=== PATIENT | female | born 1970 | race Caucasian/White ===

== ENCOUNTER 2022-05-23 06:05 | Inpatient (IN) | payer BC ==
[~2022-05-23] VITALS: Ht 165.1 cm; Wt 112.2 kg
[~2022-05-23 06:05] MED LIST: BUPR150T18 PO; FENO1CAP PO; HYDR-4902 PO; HYDR25TA5 PO; LISI30TA4 PO; SEMA2INJ SC; SITA50TA28 PO
[2022-05-23] MEDS ORDERED: MINERAL OIL TOPICAL 10ml TOP ONE (06:45)
[2022-05-23] MEDS ORDERED: BUPIVACAINE W/ EPINEPH 0.5% INJ 50ML MDV IJ ONE (06:45)
[2022-05-23] MEDS ORDERED: THROMBIN (BOVINE) 5000 UNIT SOL VIAL ONE (06:45)
[2022-05-23] MEDS ORDERED: VANCOMYCIN HCL 1000 MG VL ONE (06:49)
[2022-05-23] MEDS ORDERED: ceFAZolin 1GM/50ML 100 ML IV ONE (07:28)
[2022-05-23] MEDS ORDERED: MIDAZOLAM HCL 2MG/2ML 2ml VIAL (1mg/ml) ONE (07:32)
[2022-05-23] MEDS ORDERED: fentaNYL CITRATE 100 MCG/2 ML VL ONE (07:32)
[2022-05-23] MEDS ORDERED: SUCCINYLCHOLINE CHLORIDE 20 MG/ML 10ML VIAL IV ONE (07:37)
[2022-05-23] MEDS ORDERED: ETOMIDATE (2MG/ML) 20ML VIAL IV ONE (07:44)
[2022-05-23] MEDS ORDERED: SUGAMMADEX 200mg/2ml Vial (100MG/ML) IV ONE (07:45)
[2022-05-23] MEDS ORDERED: LABETALOL HCL 5 MG/ML 4ML SYRINGE IV PRN (08:30)
[2022-05-23] MEDS ORDERED: ACCU-CHEK COMFORT CURVE STRIP VI ONE (08:30)
[2022-05-23] MEDS ORDERED: ePHEDrine SULFATE 50 MG/ML AMP IV PRN (08:30)
[2022-05-23] MEDS ORDERED: HYDROmorphone HCL 2 MG/ML VL/or syr IV PRN (08:30)
[2022-05-23] MEDS ORDERED: MORPHINE SULFATE 4 MG/ML SYR/VIAL IV PRN (08:30)
[2022-05-23] MEDS ORDERED: ONDANSETRON HCL 4 MG/2 ML VIAL IV PRN (08:30)
[2022-05-23] MEDS ORDERED: MIDAZOLAM HCL 2MG/2ML 2ml VIAL (1mg/ml) IV PRN (08:30)
[2022-05-23] MEDS ORDERED: TRANEXAMIC ACID 20 ML ONE (08:33)
[2022-05-23] MEDS ORDERED: PROPOFOL 10 MG/ML 20 ML IV ONE (12:22)
[2022-05-23] MEDS ORDERED: ONDANSETRON HCL 4 MG/2 ML VIAL ONE (13:21)
[2022-05-23] MEDS ORDERED: MORPHINE SULFATE INJ 2 MG/ml SYRG IV PRN (14:00)
[2022-05-23] MEDS ORDERED: NITROGLYCERIN 0.4 MG SL TAB SL PRN (14:00)
[2022-05-23] MEDS: HYDROmorphone HCL 2 MG/ML VL/or syr ONE ×2 (14:57→14:58)
[2022-05-23] MEDS: HYDROmorphone HCL 2 MG/ML VL/or syr IV PRN (18:52)
[2022-05-23] MEDS: ONDANSETRON HCL 4 MG/2 ML VIAL IV PRN (19:30)
[2022-05-23 19:51] VITALS: BP_SYST 110; BP_DIAS 80; BP_DIAS 86
[2022-05-23] MEDS: LACTATED RINGER'S 1,000 ML IV SCH (19:58)
[2022-05-23] MEDS: ceFAZolin 1GM/50ML 50 ML IV SCH ×2 (19:58→22:46)
[2022-05-23 20:00] VITALS: BP 133/79
[2022-05-23] MEDS ORDERED: DEXTROSE (50%) 50ML SYRG IV ONE (20:00)
[2022-05-23 21:59] VITALS: BP 133/79
[2022-05-23] MEDS: SENNA 8.6 MG TAB PO SCH (22:46)
[2022-05-23] MEDS: DOCUSATE SOD 100 MG CAP PO SCH (22:46)
[2022-05-23] MEDS: ACCU-CHEK COMFORT CURVE STRIP VI SCH (22:47)
[2022-05-23] MEDS: InsuLIN REG 1unit/0.01ml Soln (100units/ml) SC SCH (23:03)
[2022-05-24 04:50] VITALS: BP 120/56
[2022-05-24] MEDS: ceFAZolin 1GM/50ML 50 ML IV SCH (06:24)
[2022-05-24] MEDS: ACCU-CHEK COMFORT CURVE STRIP VI SCH ×4 (06:28→22:49)
[2022-05-24] MEDS: InsuLIN REG 1unit/0.01ml Soln (100units/ml) SC SCH ×4 (06:31→22:56)
[2022-05-24 06:55] LABS: Basophils # (auto) 0 10 ^3/uL (0-0.2); Basophils % (auto) 0.3 % (0.0-2.0); Eosinophils # (auto) 0 10 ^3/uL (0-0.8); Eosinophils % (auto) 0.2 % (0.0-7.0); Hematocrit 31.4 % (36.0-46.0); Hemoglobin 10.6 g/dL (12.2-16.2); Lymphocytes # (auto) 1.7 10 ^3/uL (0.4-5.4); Mean Corpuscular Hemoglobin 30.1 pg (28.0-32.0); Mean Corpuscular Hgb Conc. 33.7 g/dL (32.0-36.0); Mean Corpuscular Volume 89.2 fL (80.0-100.0); Monocytes # (auto) 1.2 10 ^3/uL (0-1.3); Neutrophils # (auto) 14.2 10 ^3/uL (1.6-8.6); Neutrophils % (auto) 82.5 % (37.0-80.0); Nucleated Red Blood Cells % 0.1 %; Red Blood Cells 3.53 10^6/uL (4.0-5.20); Red Cell Distribution Width 13.1 % (11.8-14.3); White Blood Cell 17.2 10^3/uL (4.4-10.8)
[2022-05-24 06:59] LABS: Potassium 3.8 mmol/L (3.5-5.1)
[2022-05-24 07:06] LABS: BUN/Creatinine Ratio 15.9; Calcium 8.4 mg/dL (8.5-10.1)
[2022-05-24 08:00] VITALS: BP 133/79
[2022-05-24 09:00] VITALS: BP 131/67
[2022-05-24] MEDS: LACTATED RINGER'S 1,000 ML IV SCH ×3 (10:00→20:00)
[2022-05-24] MEDS: POLYETHYLENE GLYCOL 17 GM PWDR PO SCH (10:56)
[2022-05-24] MEDS: SENNA 8.6 MG TAB PO SCH ×2 (10:56→21:29)
[2022-05-24] MEDS: DOCUSATE SOD 100 MG CAP PO SCH ×2 (10:57→21:29)
[2022-05-24] MEDS: HYDROmorphone HCL 2 MG/ML VL/or syr IV PRN ×3 (11:02→22:50)
[2022-05-24 13:00] VITALS: BP 137/69
[2022-05-24] MEDS: oxyCODONE HCL 5MG TAB PO PRN ×2 (14:07→18:46)
[2022-05-24] MEDS ORDERED: KETAMINE 50mg/ML 10ml Vial (500mg/10ml) IV ONE (15:40)
[2022-05-24] MEDS: HEPARIN SODIUM (PORCINE) 5000 UNITS/ML 1ML VIAL SC SCH ×2 (16:51→21:34)
[2022-05-24 17:00] VITALS: BP 139/76
[2022-05-24 22:57] VITALS: BP 146/65
[2022-05-25 05:33] VITALS: BP 155/80
[2022-05-25] MEDS: LACTATED RINGER'S 1,000 ML IV SCH ×2 (06:00→16:00)
[2022-05-25 06:28] LABS: Basophils # (auto) 0.1 10 ^3/uL (0-0.2); Basophils % (auto) 0.8 % (0.0-2.0); Eosinophils # (auto) 0 10 ^3/uL (0-0.8); Eosinophils % (auto) 0.3 % (0.0-7.0); Hematocrit 31.6 % (36.0-46.0); Hemoglobin 10.7 g/dL (12.2-16.2); Lymphocytes # (auto) 1.7 10 ^3/uL (0.4-5.4); Lymphocytes % (auto) 13.2 % (10.0-50.0); Mean Corpuscular Hemoglobin 30.2 pg (28.0-32.0); Mean Corpuscular Volume 88.8 fL (80.0-100.0); Monocytes # (auto) 1.4 10 ^3/uL (0-1.3); Monocytes % (auto) 11.5 % (0.0-12.0); Neutrophils # (auto) 9.3 10 ^3/uL (1.6-8.6); Neutrophils % (auto) 74.2 % (37.0-80.0); Nucleated Red Blood Cells % 0.1 %; Red Blood Cells 3.56 10^6/uL (4.0-5.20); Red Cell Distribution Width 13.5 % (11.8-14.3); White Blood Cell 12.5 10^3/uL (4.4-10.8)
[2022-05-25 06:54] LABS: BUN/Creatinine Ratio 21.3; Calcium 8.1 mg/dL (8.5-10.1); Potassium 3.4 mmol/L (3.5-5.1)
[2022-05-25] MEDS: HEPARIN SODIUM (PORCINE) 5000 UNITS/ML 1ML VIAL SC SCH ×3 (07:17→23:43)
[2022-05-25] MEDS: ACCU-CHEK COMFORT CURVE STRIP VI SCH ×4 (07:18→23:24)
[2022-05-25] MEDS: InsuLIN REG 1unit/0.01ml Soln (100units/ml) SC SCH ×4 (07:19→23:25)
[2022-05-25] MEDS: oxyCODONE HCL 5MG TAB PO PRN ×2 (07:25→11:31)
[2022-05-25] MEDS ORDERED: POTASSIUM CHL 20 Meq TABLET PO ONE (09:45)
[2022-05-25 10:11] VITALS: BP 157/73
[2022-05-25] MEDS: buPROPion HCL 75 MG TAB PO SCH ×2 (11:30→23:13)
[2022-05-25] MEDS: HCTZ 25 MG TAB PO SCH (11:30)
[2022-05-25] MEDS: DOCUSATE SOD 100 MG CAP PO SCH ×2 (11:31→23:13)
[2022-05-25] MEDS: LISINOPRIL 20 MG TAB PO SCH (11:31)
[2022-05-25] MEDS: SENNA 8.6 MG TAB PO SCH ×2 (11:32→23:13)
[2022-05-25] MEDS: HYDROmorphone HCL 2 MG/ML VL/or syr IV PRN ×2 (13:00→18:00)
[2022-05-25 13:12] VITALS: BP 138/75
[2022-05-25] MEDS: ACETAMINOPHEN 325 MG TAB PO PRN ×3 (13:38→23:13)
[2022-05-25 15:50] LABS: Urine Bacteria NONE SEEN /hpf (None Seen); Urine Blood Negative /uL (Negative); Urine Specific Gravity 1.009 (1.001-1.035); Urine WBC <1 /hpf (0 - 5)
[2022-05-25] MEDS: POLYETHYLENE GLYCOL 17 GM PWDR PO SCH (16:24)
[2022-05-25 16:51] VITALS: BP 134/64
[2022-05-25 22:00] VITALS: BP_SYST 124; BP_SYST 154; BP_DIAS 54; BP_DIAS 99
[2022-05-26] MEDS: HYDROmorphone HCL 2 MG/ML VL/or syr IV PRN ×3 (01:35→22:30)
[2022-05-26] MEDS: LACTATED RINGER'S 1,000 ML IV SCH ×3 (02:00→22:00)
[2022-05-26 04:29] LABS: Basophils # (auto) 0 10 ^3/uL (0-0.2); Basophils % (auto) 0.3 % (0.0-2.0); Eosinophils # (auto) 0 10 ^3/uL (0-0.8); Eosinophils % (auto) 0.1 % (0.0-7.0); Hematocrit 31.2 % (36.0-46.0); Hemoglobin 10.5 g/dL (12.2-16.2); Lymphocytes # (auto) 1.5 10 ^3/uL (0.4-5.4); Lymphocytes % (auto) 8.2 % (10.0-50.0); Mean Corpuscular Hemoglobin 29.9 pg (28.0-32.0); Mean Corpuscular Hgb Conc. 33.5 g/dL (32.0-36.0); Mean Corpuscular Volume 89.2 fL (80.0-100.0); Monocytes # (auto) 0.7 10 ^3/uL (0-1.3); Monocytes % (auto) 4.2 % (0.0-12.0); Neutrophils # (auto) 15.5 10 ^3/uL (1.6-8.6); Neutrophils % (auto) 87.2 % (37.0-80.0); Red Cell Distribution Width 13.1 % (11.8-14.3); White Blood Cell 17.7 10^3/uL (4.4-10.8)
[2022-05-26 04:48] LABS: BUN/Creatinine Ratio 18.4; Calcium 7.9 mg/dL (8.5-10.1); Potassium 3.4 mmol/L (3.5-5.1)
[2022-05-26 05:00] VITALS: BP 106/60
[2022-05-26] MEDS: buPROPion HCL 75 MG TAB PO SCH ×2 (07:12→22:06)
[2022-05-26] MEDS: HEPARIN SODIUM (PORCINE) 5000 UNITS/ML 1ML VIAL SC SCH ×3 (07:15→22:07)
[2022-05-26] MEDS: ACCU-CHEK COMFORT CURVE STRIP VI SCH ×4 (07:17→22:06)
[2022-05-26] MEDS: InsuLIN REG 1unit/0.01ml Soln (100units/ml) SC SCH ×4 (07:18→22:13)
[2022-05-26] MEDS: oxyCODONE HCL 5MG TAB PO PRN ×2 (07:19→16:34)
[2022-05-26 09:00] VITALS: BP 122/67
[2022-05-26] MEDS: POLYETHYLENE GLYCOL 17 GM PWDR PO SCH (10:00)
[2022-05-26] MEDS: LISINOPRIL 20 MG TAB PO SCH (10:21)
[2022-05-26] MEDS: DOCUSATE SOD 100 MG CAP PO SCH ×2 (10:22→22:06)
[2022-05-26] MEDS: OXYCODONE W/ ACETAMINOPHEN 5/325MG TABLET PO PRN ×2 (10:22→18:49)
[2022-05-26] MEDS: SENNA 8.6 MG TAB PO SCH ×2 (10:23→22:05)
[2022-05-26] MEDS: HCTZ 25 MG TAB PO SCH (10:23)
[2022-05-26] MEDS ORDERED: BISACODYL 5 MG EC TAB PO ONE (10:30)
[2022-05-26 12:25] VITALS: BP 103/53
[2022-05-26 16:00] VITALS: BP 98/48
[2022-05-26 22:00] VITALS: BP 105/56
[2022-05-27 05:00] VITALS: BP 132/70
[2022-05-27] MEDS: ONDANSETRON HCL 4 MG/2 ML VIAL IV PRN (05:34)
[2022-05-27] MEDS: HEPARIN SODIUM (PORCINE) 5000 UNITS/ML 1ML VIAL SC SCH ×2 (05:35→14:00)
[2022-05-27] MEDS: OXYCODONE W/ ACETAMINOPHEN 5/325MG TABLET PO PRN (05:46)
[2022-05-27] MEDS: ACCU-CHEK COMFORT CURVE STRIP VI SCH ×2 (05:58→12:11)
[2022-05-27 06:04] LABS: Basophils # (auto) 0.1 10 ^3/uL (0-0.2); Basophils % (auto) 0.8 % (0.0-2.0); Eosinophils # (auto) 0.2 10 ^3/uL (0-0.8); Eosinophils % (auto) 1.7 % (0.0-7.0); Hematocrit 30.5 % (36.0-46.0); Hemoglobin 10.2 g/dL (12.2-16.2); Lymphocytes # (auto) 2.1 10 ^3/uL (0.4-5.4); Lymphocytes % (auto) 18.2 % (10.0-50.0); Mean Corpuscular Hemoglobin 29.5 pg (28.0-32.0); Mean Corpuscular Hgb Conc. 33.4 g/dL (32.0-36.0); Mean Corpuscular Volume 88.4 fL (80.0-100.0); Monocytes # (auto) 1.5 10 ^3/uL (0-1.3); Monocytes % (auto) 13.5 % (0.0-12.0); Neutrophils # (auto) 7.5 10 ^3/uL (1.6-8.6); Neutrophils % (auto) 65.8 % (37.0-80.0); Nucleated Red Blood Cells % 0.1 %; Red Blood Cells 3.45 10^6/uL (4.0-5.20); Red Cell Distribution Width 13.5 % (11.8-14.3); White Blood Cell 11.5 10^3/uL (4.4-10.8)
[2022-05-27 06:08] LABS: BUN/Creatinine Ratio 21.4; Potassium 3.7 mmol/L (3.5-5.1)
[2022-05-27] MEDS: InsuLIN REG 1unit/0.01ml Soln (100units/ml) SC SCH ×2 (06:08→12:13)
[2022-05-27] MEDS: buPROPion HCL 75 MG TAB PO SCH (06:09)
[2022-05-27] MEDS: LACTATED RINGER'S 1,000 ML IV SCH (08:00)
[2022-05-27 09:00] VITALS: BP 136/65
[2022-05-27] MEDS ORDERED: cefTRIAXone 1GM/50ML D5W 50 ML IV SCH (09:00)
[2022-05-27 09:56] VITALS: BP 132/70
[2022-05-27] MEDS: DOCUSATE SOD 100 MG CAP PO SCH (10:48)
[2022-05-27] MEDS: HCTZ 25 MG TAB PO SCH (10:49)
[2022-05-27] MEDS: POLYETHYLENE GLYCOL 17 GM PWDR PO SCH (10:49)
[2022-05-27] MEDS: LISINOPRIL 20 MG TAB PO SCH (10:50)
[2022-05-27] MEDS: SENNA 8.6 MG TAB PO SCH (10:50)
[2022-05-27] MEDS: oxyCODONE HCL 5MG TAB PO PRN (11:15)
[2022-05-27] MEDS ORDERED: ROCURONIUM 10MG/ML 10ML VIAL IV ONE (14:47)
[2022-05-27] MEDS ORDERED: DexAMETHasone SOD PHOS 10MG/1ML VIAL INJ IV ONE (14:47)
== END 2022-05-27 14:48 | disposition home or self-care (01) | DRG 454 ==
LOC: SUR 06:05 → OVERFLOW 14:12 → EAST 16:00 → TELE-EAST 21:25
PROVIDERS: ADMIT Orthopaedic Surgery; ATTEND Internal Medicine
PROC: 0SG0071 Fusion of Lumbar Vertebral Joint with Autologous Tissue Substitute, Posterior Approach, Posterior Column, Open Approach (ICD-10-PCS; 2022-05-23)
PROC: 0SG30AJ Fusion of Lumbosacral Joint with Interbody Fusion Device, Posterior Approach, Anterior Column, Open Approach (ICD-10-PCS; 2022-05-23)
PROC: 01NB0ZZ Release Lumbar Nerve, Open Approach (ICD-10-PCS; 2022-05-23)
PROC: 00NY0ZZ Release Lumbar Spinal Cord, Open Approach (ICD-10-PCS; 2022-05-23)
PROC: 0SB40ZZ Excision of Lumbosacral Disc, Open Approach (ICD-10-PCS; 2022-05-23)
PROC: 01NR0ZZ Release Sacral Nerve, Open Approach (ICD-10-PCS; 2022-05-23)
PROC: 4A11X4G Monitoring of Peripheral Nervous Electrical Activity, Intraoperative, External Approach (ICD-10-PCS; 2022-05-23)
PROC: 0SB20ZZ Excision of Lumbar Vertebral Disc, Open Approach (ICD-10-PCS; 2022-05-23)
PROC: 0SG3071 Fusion of Lumbosacral Joint with Autologous Tissue Substitute, Posterior Approach, Posterior Column, Open Approach (ICD-10-PCS; 2022-05-23)
PROC: 0SG00AJ Fusion of Lumbar Vertebral Joint with Interbody Fusion Device, Posterior Approach, Anterior Column, Open Approach (ICD-10-PCS; principal; 2022-05-23 07:43)
DX: M48.062 Spinal stenosis, lumbar region with neurogenic claudication (principal); Z68.41 Body mass index [BMI] 40.0-44.9, adult; E11.9 Type 2 diabetes mellitus without complications; E66.9 Obesity, unspecified; M54.16 Radiculopathy, lumbar region; E78.5 Hyperlipidemia, unspecified; F32.A Depression, unspecified; I10 Essential (primary) hypertension; Z20.822 Contact with and (suspected) exposure to COVID-19
CPT/HCPCS: 36415; 72100; 76000; 80048; 81001; 82962; 85025; 86850; 86900; 86901; 87040; 87077; 87086; 87186; 97163; G0378; J0330; J0690; J0696; J1100; J1815; J2250; J2405; J2704

== ENCOUNTER 2022-06-05 20:59 | Inpatient (IN) | payer BC ==
[~2022-06-05] VITALS: Ht 170.2 cm; Wt 99.6 kg
[2022-06-05] MEDS ORDERED: IOHEXOL 300 MG/ML 100ML BOTTLE IJ ONE (23:06)
[2022-06-05 23:14] LABS: Basophils # (auto) 0.1 10 ^3/uL (0-0.2); Basophils % (auto) 0.6 % (0.0-2.0); Eosinophils # (auto) 0.2 10 ^3/uL (0-0.8); Hemoglobin 10.6 g/dL (12.2-16.2); Lymphocytes # (auto) 1.8 10 ^3/uL (0.4-5.4)
[2022-06-05 23:17] LABS: Eosinophils % (auto) 0.8 % (0.0-7.0); Hematocrit 32.3 % (36.0-46.0); Lymphocytes % (auto) 8.7 % (10.0-50.0); Mean Corpuscular Hemoglobin 29.2 pg (28.0-32.0); Mean Corpuscular Hgb Conc. 32.9 g/dL (32.0-36.0); Mean Corpuscular Volume 88.8 fL (80.0-100.0); Monocytes % (auto) 4.9 % (0.0-12.0); Neutrophils # (auto) 18.1 10 ^3/uL (1.6-8.6); Red Blood Cells 3.64 10^6/uL (4.0-5.20); Red Cell Distribution Width 13.5 % (11.8-14.3); White Blood Cell 21.2 10^3/uL (4.4-10.8)
[2022-06-05 23:35] LABS: Albumin 2.7 g/dL (3.4-5.0); Calcium 9.9 mg/dL (8.5-10.1); Potassium 4.4 mmol/L (3.5-5.1)
[2022-06-05 23:37] LABS: BUN/Creatinine Ratio 33.9
[2022-06-05 23:40] LABS: Bilirubin, Total 0.6 mg/dL (0.2-1.0); Total Protein 8.8 g/dL (6.4-8.2)
[2022-06-06] MEDS ORDERED: OXYCODONE W/ ACETAMINOPHEN 5/325MG TABLET PO ONE (00:15)
[2022-06-06] MEDS ORDERED: VANCOMYCIN 1GM/250ML 250 ML IV ONE (05:30)
[2022-06-06] MEDS ORDERED: HYDROmorphone HCL 2 MG/ML VL/or syr IV ONE ×2 (05:30→10:00)
[2022-06-06] MEDS ORDERED: HYDROmorphone HCL 2 MG/ML VL/or syr ONE (09:54)
[2022-06-06] MEDS ORDERED: ONDANSETRON HCL 4 MG/2 ML VIAL IV PRN (13:00)
[2022-06-06] MEDS ORDERED: DOCUSATE SOD 100 MG CAP PO PRN (13:00)
[2022-06-06] MEDS ORDERED: MORPHINE SULFATE INJ 2 MG/ml SYRG IV PRN (13:00)
[2022-06-06] MEDS ORDERED: NITROGLYCERIN 0.4 MG SL TAB SL PRN (13:00)
[2022-06-06] MEDS ORDERED: ACETAMINOPHEN 325 MG TAB PO PRN (13:00)
[2022-06-06] MEDS ORDERED: VANCOMYCIN PER PHARMACY 0 MG IV SCH (13:00)
[2022-06-06] MEDS ORDERED: DEXTROSE (50%) 50ML SYRG IV PRN (13:30)
[2022-06-06] MEDS: MORPHINE SULFATE INJ 2 MG/ml SYRG IV PRN ×3 (14:16→22:55)
[2022-06-06 16:44] VITALS: BP 136/57
[2022-06-06 17:00] VITALS: BP 136/57
[2022-06-06] MEDS: HYDROcodone-ACET 5/325MG TAB PO PRN ×2 (17:39→21:34)
[2022-06-06] MEDS: SODIUM CHLORIDE 0.9% 1,000 ML IV SCH (18:33)
[2022-06-06] MEDS: CEFEPIME 2 GM in SODIUM CHL 0.9% 50 ML IV SCH ×2 (18:33→22:56)
[2022-06-06] MEDS: VANCOMYCIN 1GM/250ML 250 ML IV SCH (19:00)
[2022-06-06] MEDS: InsuLIN REG 1unit/0.01ml Soln (100units/ml) SC SCH ×2 (19:23→21:25)
[2022-06-06] MEDS: ACCU-CHEK COMFORT CURVE STRIP VI SCH ×2 (19:23→21:34)
[2022-06-06 22:00] VITALS: BP 131/74
[2022-06-07] MEDS: SODIUM CHLORIDE 0.9% 1,000 ML IV SCH ×4 (01:17→21:18)
[2022-06-07] MEDS: HYDROcodone-ACET 5/325MG TAB PO PRN ×5 (01:25→23:35)
[2022-06-07] MEDS: VANCOMYCIN 1GM/250ML 250 ML IV SCH ×3 (03:07→22:06)
[2022-06-07] MEDS: MORPHINE SULFATE INJ 2 MG/ml SYRG IV PRN ×2 (03:08→06:58)
[2022-06-07 05:03] VITALS: BP 153/73
[2022-06-07 05:05] LABS: Basophils # (auto) 0.1 10 ^3/uL (0-0.2); Eosinophils # (auto) 0.2 10 ^3/uL (0-0.8); Monocytes # (auto) 1.2 10 ^3/uL (0-1.3); Monocytes % (auto) 6.3 % (0.0-12.0)
[2022-06-07 05:09] LABS: Basophils % (auto) 0.5 % (0.0-2.0); Eosinophils % (auto) 0.8 % (0.0-7.0); Hematocrit 29.8 % (36.0-46.0); Hemoglobin 9.9 g/dL (12.2-16.2); Lymphocytes # (auto) 1.9 10 ^3/uL (0.4-5.4); Mean Corpuscular Hemoglobin 29.4 pg (28.0-32.0); Mean Corpuscular Hgb Conc. 33.3 g/dL (32.0-36.0); Mean Corpuscular Volume 88.2 fL (80.0-100.0); Neutrophils % (auto) 82.4 % (37.0-80.0); Red Blood Cells 3.37 10^6/uL (4.0-5.20); Red Cell Distribution Width 13.6 % (11.8-14.3); White Blood Cell 19.4 10^3/uL (4.4-10.8)
[2022-06-07] MEDS: InsuLIN REG 1unit/0.01ml Soln (100units/ml) SC SCH ×4 (06:44→21:37)
[2022-06-07] MEDS: ACCU-CHEK COMFORT CURVE STRIP VI SCH ×4 (06:45→21:18)
[2022-06-07] MEDS: CEFEPIME 2 GM in SODIUM CHL 0.9% 50 ML IV SCH ×3 (06:45→21:28)
[2022-06-07 07:30] VITALS: BP 153/75
[2022-06-07 09:00] VITALS: BP 155/71
[2022-06-07] MEDS: ENOXAPARIN SOD 40 MG/0.4 ML SYRINGE SC SCH (10:20)
[2022-06-07] MEDS: HYDROmorphone HCL 2 MG/ML VL/or syr IV PRN ×3 (12:54→21:44)
[2022-06-07 13:00] VITALS: BP 150/70
[2022-06-07] MEDS ORDERED: LACTULOSE 20Gm/30ML SOLN PO SCH (14:00)
[2022-06-07] MEDS ORDERED: GADOTERATE MEG 7.5 MMOL/15ml INJ (0.5MMOL/ml) IV ONE (14:13)
[2022-06-07] MEDS: LACTULOSE 20Gm/30ML SOLN PO SCH ×2 (14:23→21:29)
[2022-06-07] MEDS ORDERED: CYCLOBENZAPRINE HCL 10 MG TAB PO ONE (16:00)
[2022-06-07 17:00] VITALS: BP 134/81
[2022-06-07] MEDS: CYCLOBENZAPRINE HCL 10 MG TAB PO SCH (21:29)
[2022-06-07 22:00] VITALS: BP 152/72
[2022-06-08] MEDS: HYDROmorphone HCL 2 MG/ML VL/or syr IV PRN ×4 (04:12→20:36)
[2022-06-08 05:19] LABS: Basophils # (auto) 0.1 10 ^3/uL (0-0.2); Basophils % (auto) 0.9 % (0.0-2.0); Eosinophils # (auto) 0.3 10 ^3/uL (0-0.8); Eosinophils % (auto) 1.8 % (0.0-7.0); Hematocrit 27.2 % (36.0-46.0); Lymphocytes # (auto) 2.4 10 ^3/uL (0.4-5.4); Lymphocytes % (auto) 13.7 % (10.0-50.0); Mean Corpuscular Hemoglobin 29.1 pg (28.0-32.0); Mean Corpuscular Hgb Conc. 33.1 g/dL (32.0-36.0); Mean Corpuscular Volume 87.9 fL (80.0-100.0); Monocytes # (auto) 1.3 10 ^3/uL (0-1.3); Monocytes % (auto) 7.4 % (0.0-12.0); Neutrophils # (auto) 13.1 10 ^3/uL (1.6-8.6); Neutrophils % (auto) 76.2 % (37.0-80.0); Red Cell Distribution Width 13.5 % (11.8-14.3); White Blood Cell 17.2 10^3/uL (4.4-10.8)
[2022-06-08 05:31] VITALS: BP 135/72
[2022-06-08 05:36] LABS: Anion Gap 8 (5-15); BUN/Creatinine Ratio 27.8; Blood Urea Nitrogen 15 mg/dL (7-18); Calcium 8.4 mg/dL (8.5-10.1); Carbon Dioxide 26 mmol/L (21-32); Chloride 101 mmol/L (98-107); GFR African American 151 mL/min; GFR Non-African American 125 mL/min; Glucose 176 mg/dL (74-106); Sodium 135 mmol/L (136-145)
[2022-06-08] MEDS: VANCOMYCIN 1GM/250ML 250 ML IV SCH ×3 (05:44→22:02)
[2022-06-08] MEDS: CYCLOBENZAPRINE HCL 10 MG TAB PO SCH ×3 (05:45→21:23)
[2022-06-08] MEDS: LACTULOSE 20Gm/30ML SOLN PO SCH ×3 (05:45→21:22)
[2022-06-08] MEDS: CEFEPIME 2 GM in SODIUM CHL 0.9% 50 ML IV SCH ×3 (05:45→21:22)
[2022-06-08] MEDS: ACCU-CHEK COMFORT CURVE STRIP VI SCH ×4 (06:06→21:24)
[2022-06-08 06:21] LABS: CRP High Sensitivity > 19.0 mg/dL (< 0.3)
[2022-06-08] MEDS: InsuLIN REG 1unit/0.01ml Soln (100units/ml) SC SCH ×4 (06:21→21:24)
[2022-06-08] MEDS: HYDROcodone-ACET 5/325MG TAB PO PRN ×3 (06:36→22:09)
[2022-06-08] MEDS: SODIUM CHLORIDE 0.9% 1,000 ML IV SCH ×3 (06:40→23:20)
[2022-06-08 08:00] VITALS: BP 143/83
[2022-06-08 09:00] VITALS: BP 143/83
[2022-06-08] MEDS: ENOXAPARIN SOD 40 MG/0.4 ML SYRINGE SC SCH (09:11)
[2022-06-08 13:00] VITALS: BP 141/72
[2022-06-08 13:22] LABS: INR 1.11 (0.9-1.15); Partial Thromboplastin Time 32.2 sec (24.6-33.4)
[2022-06-08 17:00] VITALS: BP 153/81
[2022-06-08 22:00] VITALS: BP 149/78
[2022-06-09] MEDS: HYDROmorphone HCL 2 MG/ML VL/or syr IV PRN ×8 (00:25→22:03)
[2022-06-09 04:50] LABS: Urine Bacteria MOD /hpf (None Seen); Urine Blood TRACE /uL (Negative); Urine Hyaline Cast FEW /lpf (0 - 2); Urine Mucus FEW (None Seen); Urine Specific Gravity 1.017 (1.001-1.035); Urine WBC 8 /hpf (0 - 5)
[2022-06-09] MEDS: LACTULOSE 20Gm/30ML SOLN PO SCH ×3 (04:55→18:31)
[2022-06-09] MEDS: CYCLOBENZAPRINE HCL 10 MG TAB PO SCH ×3 (04:55→21:59)
[2022-06-09 05:00] VITALS: BP 147/79
[2022-06-09] MEDS: CEFEPIME 2 GM in SODIUM CHL 0.9% 50 ML IV SCH ×3 (06:32→21:58)
[2022-06-09] MEDS: VANCOMYCIN 1GM/250ML 250 ML IV SCH ×3 (06:34→19:56)
[2022-06-09] MEDS: ACCU-CHEK COMFORT CURVE STRIP VI SCH ×4 (06:38→22:04)
[2022-06-09] MEDS: InsuLIN REG 1unit/0.01ml Soln (100units/ml) SC SCH ×4 (06:39→22:07)
[2022-06-09] MEDS: SODIUM CHLORIDE 0.9% 1,000 ML IV SCH ×2 (07:40→16:00)
[2022-06-09 09:00] VITALS: BP 152/77
[2022-06-09] MEDS ORDERED: ONDANSETRON HCL 4 MG/2 ML VIAL IV PRN (09:30)
[2022-06-09] MEDS ORDERED: HYDROmorphone HCL 2 MG/ML VL/or syr IV PRN (09:30)
[2022-06-09] MEDS ORDERED: SUCCINYLCHOLINE CHLORIDE 20 MG/ML 10ML VIAL IV ONE (09:34)
[2022-06-09] MEDS ORDERED: fentaNYL CITRATE 5 ML ONE (09:37)
[2022-06-09] MEDS ORDERED: MIDAZOLAM HCL 2MG/2ML 2ml VIAL (1mg/ml) ONE (09:37)
[2022-06-09] MEDS ORDERED: VANCOMYCIN HCL 1000 MG VL ONE (09:38)
[2022-06-09] MEDS ORDERED: ROCURONIUM 10MG/ML 10ML VIAL IV ONE (09:43)
[2022-06-09] MEDS ORDERED: LIDOCAINE 2% (LOCAL ANESTH.) PF 5ml SDV ONE (09:44)
[2022-06-09] MEDS ORDERED: ONDANSETRON HCL 4 MG/2 ML VIAL ONE (09:44)
[2022-06-09] MEDS ORDERED: PROPOFOL 10 MG/ML 20 ML IV ONE (11:39)
[2022-06-09] MEDS ORDERED: NEOSTIGMINE 1 MG/ML INJ (10mg/10ML VIAL) ONE (11:39)
[2022-06-09] MEDS ORDERED: GLYCOPYRROLATE 0.2 MG/ML 1ML VIAL ONE (11:39)
[2022-06-09 14:00] VITALS: BP 103/44
[2022-06-09 17:00] VITALS: BP 143/73
[2022-06-09] MEDS: HYDROcodone-ACET 5/325MG TAB PO PRN (19:35)
[2022-06-09 22:00] VITALS: BP 131/63
[2022-06-09] MEDS: SENNA 8.6 MG TAB PO SCH (22:11)
[2022-06-10] MEDS: DOCUSATE SOD 100 MG CAP PO SCH ×3 (00:16→22:28)
[2022-06-10] MEDS: HYDROcodone-ACET 5/325MG TAB PO PRN ×2 (00:19→21:00)
[2022-06-10] MEDS: LACTULOSE 20Gm/30ML SOLN PO SCH ×4 (00:19→18:39)
[2022-06-10] MEDS: SODIUM CHLORIDE 0.9% 1,000 ML IV SCH ×3 (00:20→17:00)
[2022-06-10] MEDS: HYDROmorphone HCL 2 MG/ML VL/or syr IV PRN ×4 (01:47→14:48)
[2022-06-10] MEDS: VANCOMYCIN 1GM/250ML 250 ML IV SCH ×3 (03:38→20:00)
[2022-06-10 05:00] VITALS: BP 144/63
[2022-06-10] MEDS: CYCLOBENZAPRINE HCL 10 MG TAB PO SCH ×3 (05:29→22:29)
[2022-06-10] MEDS: CEFEPIME 2 GM in SODIUM CHL 0.9% 50 ML IV SCH ×3 (05:29→22:28)
[2022-06-10] MEDS: ACCU-CHEK COMFORT CURVE STRIP VI SCH ×4 (05:57→22:23)
[2022-06-10] MEDS: InsuLIN REG 1unit/0.01ml Soln (100units/ml) SC SCH ×4 (06:00→22:26)
[2022-06-10 09:00] VITALS: BP 144/75
[2022-06-10 13:00] VITALS: BP 140/70
[2022-06-10] MEDS ORDERED: ENOXAPARIN SOD 40 MG/0.4 ML SYRINGE SC ONE (14:00)
[2022-06-10 17:00] VITALS: BP 130/75
[2022-06-10 22:00] VITALS: BP 152/78
[2022-06-10] MEDS: SENNA 8.6 MG TAB PO SCH (22:29)
[2022-06-11] MEDS: LACTULOSE 20Gm/30ML SOLN PO SCH ×4 (00:26→17:26)
[2022-06-11] MEDS: HYDROmorphone HCL 2 MG/ML VL/or syr IV PRN ×5 (00:27→20:56)
[2022-06-11] MEDS: SODIUM CHLORIDE 0.9% 1,000 ML IV SCH ×3 (02:49→17:27)
[2022-06-11] MEDS: VANCOMYCIN 1GM/250ML 250 ML IV SCH ×3 (04:01→20:31)
[2022-06-11] MEDS: HYDROcodone-ACET 5/325MG TAB PO PRN ×3 (04:09→17:27)
[2022-06-11 05:00] VITALS: BP 157/85
[2022-06-11 06:07] LABS: INR 1.12 (0.9-1.15); Partial Thromboplastin Time 32.3 sec (24.6-33.4)
[2022-06-11 06:09] LABS: Magnesium 1.8 mg/dL (1.6-2.6)
[2022-06-11 06:10] LABS: Basophils # (auto) 0.1 10 ^3/uL (0-0.2); Hemoglobin 8.1 g/dL (12.2-16.2); Lymphocytes # (auto) 1.9 10 ^3/uL (0.4-5.4)
[2022-06-11 06:12] LABS: BUN/Creatinine Ratio 22.6; Basophils % (auto) 1.2 % (0.0-2.0); Calcium 8.8 mg/dL (8.5-10.1); Eosinophils # (auto) 0.5 10 ^3/uL (0-0.8); Eosinophils % (auto) 4.4 % (0.0-7.0); Hematocrit 24.7 % (36.0-46.0); Lymphocytes % (auto) 16.1 % (10.0-50.0); Mean Corpuscular Hemoglobin 28.8 pg (28.0-32.0); Mean Corpuscular Hgb Conc. 32.8 g/dL (32.0-36.0); Mean Corpuscular Volume 87.8 fL (80.0-100.0); Monocytes % (auto) 8.2 % (0.0-12.0); Neutrophils # (auto) 8.4 10 ^3/uL (1.6-8.6); Neutrophils % (auto) 70.1 % (37.0-80.0); Red Blood Cells 2.81 10^6/uL (4.0-5.20); Red Cell Distribution Width 13.9 % (11.8-14.3)
[2022-06-11] MEDS: InsuLIN REG 1unit/0.01ml Soln (100units/ml) SC SCH ×4 (06:13→21:53)
[2022-06-11] MEDS: ACCU-CHEK COMFORT CURVE STRIP VI SCH ×4 (06:16→21:55)
[2022-06-11] MEDS: CYCLOBENZAPRINE HCL 10 MG TAB PO SCH ×3 (06:17→21:58)
[2022-06-11] MEDS: CEFEPIME 2 GM in SODIUM CHL 0.9% 50 ML IV SCH ×3 (06:18→21:57)
[2022-06-11 08:00] VITALS: BP 141/69
[2022-06-11] MEDS: DOCUSATE SOD 100 MG CAP PO SCH ×2 (09:02→21:56)
[2022-06-11] MEDS ORDERED: ENOXAPARIN SOD 40 MG/0.4 ML SYRINGE SC SCH (10:00)
[2022-06-11 11:56] VITALS: BP 134/74
[2022-06-11 16:00] VITALS: BP 157/81
[2022-06-11] MEDS: SENNA 8.6 MG TAB PO SCH (21:58)
[2022-06-12] MEDS: HYDROcodone-ACET 5/325MG TAB PO PRN ×3 (00:38→21:41)
[2022-06-12] MEDS: SODIUM CHLORIDE 0.9% 1,000 ML IV SCH ×3 (02:20→19:00)
[2022-06-12] MEDS: VANCOMYCIN 1GM/250ML 250 ML IV SCH ×2 (04:24→12:45)
[2022-06-12 05:00] VITALS: BP 158/76
[2022-06-12] MEDS: LACTULOSE 20Gm/30ML SOLN PO SCH ×4 (06:00→17:40)
[2022-06-12] MEDS: ACCU-CHEK COMFORT CURVE STRIP VI SCH ×4 (06:28→22:11)
[2022-06-12] MEDS: InsuLIN REG 1unit/0.01ml Soln (100units/ml) SC SCH ×4 (06:30→22:08)
[2022-06-12] MEDS: CYCLOBENZAPRINE HCL 10 MG TAB PO SCH ×3 (06:33→21:39)
[2022-06-12] MEDS: CEFEPIME 2 GM in SODIUM CHL 0.9% 50 ML IV SCH (06:33)
[2022-06-12] MEDS: HYDROmorphone HCL 2 MG/ML VL/or syr IV PRN ×3 (06:34→17:56)
[2022-06-12 08:00] VITALS: BP 152/80
[2022-06-12] MEDS: DOCUSATE SOD 100 MG CAP PO SCH ×2 (10:00→21:39)
[2022-06-12 12:00] VITALS: BP 149/73
[2022-06-12] MEDS: PIPERACILLIN-TAZO 4.5GM 100 ML IV SCH ×2 (15:00→20:28)
[2022-06-12 20:00] VITALS: BP 153/75
[2022-06-12] MEDS: SENNA 8.6 MG TAB PO SCH (21:38)
[2022-06-13] MEDS: HYDROmorphone HCL 2 MG/ML VL/or syr IV PRN ×5 (01:40→22:05)
[2022-06-13] MEDS: PIPERACILLIN-TAZO 4.5GM 100 ML IV SCH ×4 (02:48→23:39)
[2022-06-13] MEDS: SODIUM CHLORIDE 0.9% 1,000 ML IV SCH ×3 (03:20→23:40)
[2022-06-13 04:43] VITALS: BP 147/82
[2022-06-13 05:10] LABS: Basophils # (auto) 0.1 10 ^3/uL (0-0.2); Monocytes # (auto) 0.9 10 ^3/uL (0-1.3); Red Cell Distribution Width 14.2 % (11.8-14.3)
[2022-06-13 05:14] LABS: Basophils % (auto) 1.3 % (0.0-2.0); Eosinophils # (auto) 0.6 10 ^3/uL (0-0.8); Eosinophils % (auto) 5.6 % (0.0-7.0); Hematocrit 24.5 % (36.0-46.0); Hemoglobin 8.1 g/dL (12.2-16.2); Lymphocytes # (auto) 2.1 10 ^3/uL (0.4-5.4); Lymphocytes % (auto) 18.2 % (10.0-50.0); Mean Corpuscular Hemoglobin 28.7 pg (28.0-32.0); Mean Corpuscular Hgb Conc. 33.1 g/dL (32.0-36.0); Mean Corpuscular Volume 86.9 fL (80.0-100.0); Neutrophils # (auto) 7.5 10 ^3/uL (1.6-8.6); Neutrophils % (auto) 66.9 % (37.0-80.0); Nucleated Red Blood Cells % 0.1 %; Red Blood Cells 2.82 10^6/uL (4.0-5.20); White Blood Cell 11.3 10^3/uL (4.4-10.8)
[2022-06-13 05:33] LABS: Potassium 3.9 mmol/L (3.5-5.1)
[2022-06-13 05:37] LABS: BUN/Creatinine Ratio 24.2; Calcium 8.1 mg/dL (8.5-10.1); Magnesium 1.7 mg/dL (1.6-2.6)
[2022-06-13] MEDS: LACTULOSE 20Gm/30ML SOLN PO SCH ×2 (05:57)
[2022-06-13] MEDS: ACCU-CHEK COMFORT CURVE STRIP VI SCH ×3 (05:58→17:24)
[2022-06-13] MEDS: CYCLOBENZAPRINE HCL 10 MG TAB PO SCH ×3 (06:09→23:41)
[2022-06-13] MEDS: HYDROcodone-ACET 5/325MG TAB PO PRN ×3 (06:10→18:59)
[2022-06-13] MEDS: InsuLIN REG 1unit/0.01ml Soln (100units/ml) SC SCH ×3 (06:11→17:00)
[2022-06-13 08:00] VITALS: BP 144/72
[2022-06-13 09:35] VITALS: BP 157/68
[2022-06-13] MEDS: DOCUSATE SOD 100 MG CAP PO SCH ×2 (10:00→23:39)
[2022-06-13] MEDS ORDERED: ASPirin 81 mg TAB PO SCH (10:00)
[2022-06-13] MEDS: FERROUS SULFATE 325mg EC TAB PO SCH (10:30)
[2022-06-13] MEDS ORDERED: LACTULOSE 20Gm/30ML SOLN PO PRN (12:30)
[2022-06-13 12:43] VITALS: BP 144/72
[2022-06-13 17:00] VITALS: BP 165/78
[2022-06-13 22:00] VITALS: BP 151/74
[2022-06-13] MEDS: SENNA 8.6 MG TAB PO SCH (23:41)
[2022-06-14] MEDS: ACCU-CHEK COMFORT CURVE STRIP VI SCH ×5 (00:20→22:28)
[2022-06-14] MEDS: InsuLIN REG 1unit/0.01ml Soln (100units/ml) SC SCH ×4 (00:21→16:59)
[2022-06-14] MEDS: HYDROmorphone HCL 2 MG/ML VL/or syr IV PRN ×5 (01:43→22:29)
[2022-06-14] MEDS: PIPERACILLIN-TAZO 4.5GM 100 ML IV SCH ×4 (02:30→21:37)
[2022-06-14 05:00] VITALS: BP 156/73
[2022-06-14] MEDS: SODIUM CHLORIDE 0.9% 1,000 ML IV SCH ×3 (05:38→22:27)
[2022-06-14] MEDS: CYCLOBENZAPRINE HCL 10 MG TAB PO SCH ×3 (05:54→22:27)
[2022-06-14 08:00] VITALS: BP 142/78
[2022-06-14] MEDS: DOCUSATE SOD 100 MG CAP PO SCH ×2 (11:19→22:27)
[2022-06-14] MEDS: FERROUS SULFATE 325mg EC TAB PO SCH (11:19)
[2022-06-14 12:00] VITALS: BP 137/84
[2022-06-14 17:00] VITALS: BP 154/82
[2022-06-14 22:14] VITALS: BP 133/82
[2022-06-14] MEDS: SENNA 8.6 MG TAB PO SCH (22:28)
[2022-06-15] MEDS: HYDROcodone-ACET 5/325MG TAB PO PRN
[2022-06-15] MEDS: InsuLIN REG 1unit/0.01ml Soln (100units/ml) SC SCH ×5 (00:02→22:50)
[2022-06-15] MEDS: PIPERACILLIN-TAZO 4.5GM 100 ML IV SCH ×4 (02:32→22:46)
[2022-06-15] MEDS: SODIUM CHLORIDE 0.9% 1,000 ML IV SCH ×3 (02:32→22:46)
[2022-06-15] MEDS: HYDROmorphone HCL 2 MG/ML VL/or syr IV PRN ×5 (02:36→20:12)
[2022-06-15 05:00] VITALS: BP 118/70
[2022-06-15] MEDS: CYCLOBENZAPRINE HCL 10 MG TAB PO SCH ×3 (06:20→22:47)
[2022-06-15] MEDS: ACCU-CHEK COMFORT CURVE STRIP VI SCH ×4 (06:20→22:47)
[2022-06-15 08:00] VITALS: BP 145/77
[2022-06-15] MEDS: FERROUS SULFATE 325mg EC TAB PO SCH (10:54)
[2022-06-15] MEDS: DOCUSATE SOD 100 MG CAP PO SCH ×2 (10:55→22:47)
[2022-06-15 12:00] VITALS: BP 141/74
[2022-06-15] MEDS ORDERED: CYCL-611 PO (12:59)
[2022-06-15] MEDS ORDERED: PERCOT PO (12:59)
[2022-06-15 16:00] VITALS: BP 142/77
[2022-06-15 22:00] VITALS: BP 148/70
[2022-06-15] MEDS: SENNA 8.6 MG TAB PO SCH (22:47)
[2022-06-16] MEDS: HYDROmorphone HCL 2 MG/ML VL/or syr IV PRN ×4 (00:02→21:10)
[2022-06-16] MEDS: PIPERACILLIN-TAZO 4.5GM 100 ML IV SCH ×4 (03:39→21:10)
[2022-06-16] MEDS: HYDROcodone-ACET 5/325MG TAB PO PRN ×2 (03:50→14:11)
[2022-06-16 05:00] VITALS: BP 145/80
[2022-06-16] MEDS: SODIUM CHLORIDE 0.9% 1,000 ML IV SCH ×3 (06:59→23:00)
[2022-06-16] MEDS: CYCLOBENZAPRINE HCL 10 MG TAB PO SCH ×3 (06:59→22:39)
[2022-06-16] MEDS: ACCU-CHEK COMFORT CURVE STRIP VI SCH ×4 (07:00→22:43)
[2022-06-16] MEDS: InsuLIN REG 1unit/0.01ml Soln (100units/ml) SC SCH ×4 (07:00→22:50)
[2022-06-16 07:11] LABS: Albumin 2.3 g/dL (3.4-5.0); Calcium 8.4 mg/dL (8.5-10.1); Potassium 4.3 mmol/L (3.5-5.1)
[2022-06-16 07:15] LABS: BUN/Creatinine Ratio 24.1; Phosphorus 3.9 mg/dL (2.5-4.90)
[2022-06-16 09:28] VITALS: BP 142/74
[2022-06-16] MEDS: FERROUS SULFATE 325mg EC TAB PO SCH (10:12)
[2022-06-16] MEDS: DOCUSATE SOD 100 MG CAP PO SCH ×2 (10:12→22:39)
[2022-06-16 12:37] LABS: Basophils # (auto) 0.1 10 ^3/uL (0-0.2); Hemoglobin 8.1 g/dL (12.2-16.2); Mean Corpuscular Hgb Conc. 32.3 g/dL (32.0-36.0); Monocytes # (auto) 1.1 10 ^3/uL (0-1.3); Red Blood Cells 2.87 10^6/uL (4.0-5.20)
[2022-06-16 12:38] LABS: Eosinophils # (auto) 0.7 10 ^3/uL (0-0.8); Eosinophils % (auto) 5.5 % (0.0-7.0); Hematocrit 25.1 % (36.0-46.0); Lymphocytes # (auto) 2.2 10 ^3/uL (0.4-5.4); Mean Corpuscular Hemoglobin 28.2 pg (28.0-32.0); Mean Corpuscular Volume 87.4 fL (80.0-100.0); Monocytes % (auto) 8.5 % (0.0-12.0); Neutrophils # (auto) 8.7 10 ^3/uL (1.6-8.6); Nucleated Red Blood Cells % 0.2 %; Red Cell Distribution Width 14.6 % (11.8-14.3); White Blood Cell 12.7 10^3/uL (4.4-10.8)
[2022-06-16 12:46] LABS: BUN/Creatinine Ratio 17.5; Calcium 8.4 mg/dL (8.5-10.1); Potassium 4.4 mmol/L (3.5-5.1)
[2022-06-16 13:00] VITALS: BP 133/74
[2022-06-16 16:58] VITALS: BP 145/77
[2022-06-16 22:00] VITALS: BP 159/81
[2022-06-16] MEDS: SENNA 8.6 MG TAB PO SCH (22:38)
[2022-06-17] MEDS: HYDROmorphone HCL 2 MG/ML VL/or syr IV PRN ×5 (00:30→17:01)
[2022-06-17] MEDS: PIPERACILLIN-TAZO 4.5GM 100 ML IV SCH ×3 (02:44→14:33)
[2022-06-17] MEDS: HYDROcodone-ACET 5/325MG TAB PO PRN (02:45)
[2022-06-17 05:00] VITALS: BP 151/84
[2022-06-17] MEDS: CYCLOBENZAPRINE HCL 10 MG TAB PO SCH ×2 (06:24→12:50)
[2022-06-17] MEDS: ACCU-CHEK COMFORT CURVE STRIP VI SCH ×3 (06:41→17:00)
[2022-06-17] MEDS: InsuLIN REG 1unit/0.01ml Soln (100units/ml) SC SCH ×3 (06:41→17:24)
[2022-06-17] MEDS: SODIUM CHLORIDE 0.9% 1,000 ML IV SCH ×2 (07:20→08:48)
[2022-06-17] MEDS: DOCUSATE SOD 100 MG CAP PO SCH (08:45)
[2022-06-17] MEDS: FERROUS SULFATE 325mg EC TAB PO SCH (08:46)
[2022-06-17 09:00] VITALS: BP 130/71
[2022-06-17 12:38] VITALS: BP 160/77
[2022-06-17 14:40] VITALS: BP 144/82
[2022-06-17 17:00] VITALS: BP 152/69
[2022-06-17 17:31] VITALS: BP 128/72
== END 2022-06-17 18:30 | disposition home health service (06) | DRG 516 ==
LOC: ER 20:59 → OVERFLOW 06-06 13:03 → EAST 06-06 15:41
PROVIDERS: ADMIT Internal Medicine; ATTEND Internal Medicine
PROC: 0QB00ZZ Excision of Lumbar Vertebra, Open Approach (ICD-10-PCS; principal; 2022-06-09 09:27)
DX: T84.63XA Infection and inflammatory reaction due to internal fixation device of spine, initial encounter (principal); L03.818 Cellulitis of other sites; M46.26 Osteomyelitis of vertebra, lumbar region; D72.829 Elevated white blood cell count, unspecified; I10 Essential (primary) hypertension; F41.9 Anxiety disorder, unspecified; D50.9 Iron deficiency anemia, unspecified; D75.838 Other thrombocytosis; Y83.8 Other surgical procedures as the cause of abnormal reaction of the patient, or of later complication, without mention of misadventure at the time of the procedure; Z20.822 Contact with and (suspected) exposure to COVID-19; E11.65 Type 2 diabetes mellitus with hyperglycemia; R21 Rash and other nonspecific skin eruption; I77.6 Arteritis, unspecified; M54.16 Radiculopathy, lumbar region; Z98.1 Arthrodesis status; Z82.49 Family history of ischemic heart disease and other diseases of the circulatory system; Z83.3 Family history of diabetes mellitus; Y92.89 Other specified places as the place of occurrence of the external cause
CPT/HCPCS: 36415; 71045; 72131; 72158; 74177; 80048; 80053; 80069; 80202; 81001; 82565; 82962; 83036; 83605; 83690; 83735; 85025; 85610; 85652; 85730; 86141; 86850; 86900; 86901; 87040; 87070; 87075; 87077; 87186; 87205; 93005; 96365; 96375; 97110; 97116; 97163; 97530; G0378; J0330; J1815; J2001; J2250; J2405; J2543; J2704

== ENCOUNTER 2022-06-30 20:26 | Emergency (ER) | payer BC ==
[~2022-06-30] VITALS: Ht 167.6 cm; Wt 94.0 kg
[~2022-06-30 20:26] MED LIST changes: +CYCL-611 PO; -HYDR-4902 PO; +PERCOT PO
[2022-06-30] MEDS ORDERED: DexAMETHasone SOD PHOS 10MG/1ML VIAL INJ IV ONE (22:00)
[2022-06-30] MEDS ORDERED: diphenhdrAMINE HCL 50 MG/1 ML VL IV ONE (22:00)
[2022-06-30] MEDS ORDERED: DEX4T PO (22:33)
[2022-06-30] MEDS ORDERED: DIPH25CA66 PO (22:33)
[2022-06-30 23:11] LABS: Basophils # (auto) 0.1 10 ^3/uL (0-0.2); Basophils % (auto) 1.1 % (0.0-2.0); Eosinophils # (auto) 0.7 10 ^3/uL (0-0.8); Lymphocytes # (auto) 1.1 10 ^3/uL (0.4-5.4); Monocytes # (auto) 0.7 10 ^3/uL (0-1.3); Neutrophils % (auto) 75.1 % (37.0-80.0)
[2022-06-30 23:13] LABS: Eosinophils % (auto) 6.7 % (0.0-7.0); Hemoglobin 10.2 g/dL (12.2-16.2); Lymphocytes % (auto) 10.7 % (10.0-50.0); Mean Corpuscular Hemoglobin 28.1 pg (28.0-32.0); Mean Corpuscular Hgb Conc. 33.8 g/dL (32.0-36.0); Mean Corpuscular Volume 83.1 fL (80.0-100.0); Monocytes % (auto) 6.4 % (0.0-12.0); Neutrophils # (auto) 7.9 10 ^3/uL (1.6-8.6); Nucleated Red Blood Cells % 0.1 %; Red Blood Cells 3.61 10^6/uL (4.0-5.20); Red Cell Distribution Width 16.5 % (11.8-14.3); White Blood Cell 10.5 10^3/uL (4.4-10.8)
[2022-06-30 23:21] LABS: Calcium 8.8 mg/dL (8.5-10.1); Potassium 3.8 mmol/L (3.5-5.1)
[2022-06-30 23:23] LABS: BUN/Creatinine Ratio 17.7
[2022-06-30 23:26] LABS: Bilirubin, Total 0.4 mg/dL (0.2-1.0); Total Protein 7.7 g/dL (6.4-8.2)
[2022-06-30] MEDS ORDERED: ONDANSETRON HCL 4 MG/2 ML VIAL IV ONE (23:45)
[2022-06-30] MEDS ORDERED: ONDANSETRON HCL 4 MG/2 ML VIAL ONE (23:47)
[2022-06-30 23:54] VITALS: BP 158/70
== END 2022-07-01 00:16 | disposition home or self-care (01) ==
LOC: ER 20:28
DX: T78.40XA Allergy, unspecified, initial encounter (principal); X58.XXXA Exposure to other specified factors, initial encounter
CPT/HCPCS: 36415; 80053; 85025; 96374; 96375; 99284; J1100; J1200; J2405